=== PATIENT | female | born 1960 | race Caucasian/White ===

== ENCOUNTER 2018-12-27 16:48 | Inpatient (IN) ==
[2018-12-27] MEDS ORDERED: SODIUM CHLORIDE 0.9% 1,000 ML IV STA ×2 (17:18→18:47)
[2018-12-27] MEDS ORDERED: metroNIDAZOLE INJ 500 MG in PREMIX 1 EACH IV STA (17:18)
[2018-12-27] MEDS ORDERED: ONDANSETRON 4 MG/2 ML VIAL IV STA (17:18)
[2018-12-27] MEDS ORDERED: LOPERAMIDE 2 MG CAPSULE PO STA (17:18)
[2018-12-27] MEDS ORDERED: DICYCLOMINE 20 MG/2 ML AMP IM ONE (17:18)
[2018-12-27] MEDS ORDERED: METOCLOPRAMIDE 10 MG/2 ML VIAL IV STA (17:18)
[2018-12-27 17:47] LABS: Basophils % 0.4 % (0.0-0.8); Eosinophils # 0.1 10*3/uL (0.0-0.87); Eosinophils % 0.6 % (0.00-10.9); Hemoglobin 14.6 GM/DL (12.0-16.0); Immature Granulocytes % 0.3 %; Immature Granulocytes Absolute 0.03 #; Lymphocytes # 1.8 10*3/uL (1.4-4.0); Lymphocytes % 17.1 % (21.3-54.2); Mean Corpuscular HGB Conc 35.6 GM/DL (32-36); Mean Corpuscular Volume 92.3 FL (87-102); Mean Platelet Volume 10.1 FL (9.6-12.0); Monocytes % 12.2 % (1.7-12.7); Neutrophils % 69.4 % (38.7-73.9); Platelet Count 211 T/CUMM (130-400); Red Blood Count 4.44 MC/CUMM (3.8-5.5); Red Cell Distribution Width 13.2 % (9.3-17.3); White Blood Count 10.3 T/CUMM (4-12)
[2018-12-27 18:13] LABS: Alanine Aminotransferase 21 U/L (13-56); Albumin 3.9 G/DL (3.4-5.0); Alkaline Phosphatase 89 U/L (45-117); Amylase 60 U/L (25-115); Aspartate Amino Transferase 30 U/L (0-37); Bilirubin,Total < 0.39 MG/DL (0.2-1.0); Blood Urea Nitrogen 30 MG/DL (7-18); CKMB % 4.6 %; Calcium 8.7 MG/DL (8.5-10.1); Estimated Glom Filtration Rate 26 ML/MIN; Glucose 96 MG/DL (74-106); Osmolality,Calculated 265.8 MOS/KG (273-304); Total Protein 7.2 G/DL (6.4-8.3); Troponin I < 0.015 NG/ML (0.00-0.045)
[2018-12-27 18:23] LABS: Apearance,Urine CLOUDY (Clear); Bilirubin,Urine Negative (Negative); Blood, Urine Negative (Negative); Glucose,Urine (UA) Negative (Negative); Hyaline Casts,Urine 46 /LPF (0-3); Ketones,Urine 5 mg/dL (Negative); Mucus,Urine Occasional /LPF (Occasional); Nitrite,Urine Negative (Negative); Protein,Urine 30 MG/DL; RBC,Urine 3 /HPF (0-4); Squamous Epithelial Cell,Urine Occasional /HPF (0-10); Urine Color Amber (Yellow); Urine Specific Gravity 1.021 (1.001-1.035); WBC,Urine 3 /HPF (0-6)
[2018-12-27] MEDS ORDERED: traZODone 50 MG TABLET PO PRN (20:18)
[2018-12-27] MEDS ORDERED: ONDANSETRON 4 MG/2 ML VIAL IV PRN (20:18)
[2018-12-27] MEDS ORDERED: MAGNESIUM SULF RIDER 4 GM in PREMIX 1 EACH IV PRN (20:18)
[2018-12-27] MEDS ORDERED: NICOTINE 21 MG/24 HR PATCH TRANSDERM PRN (20:18)
[2018-12-27] MEDS ORDERED: ACETAMINOPHEN 325 MG TABLET PO PRN (20:18)
[2018-12-27] MEDS ORDERED: PROMETHAZINE 25 MG/1 ML VIAL IM PRN (20:18)
[2018-12-27] MEDS ORDERED: diphenhydrAMINE CAP 25 MG CAPSULE PO PRN (20:18)
[2018-12-27] MEDS ORDERED: LEVOFLOXACIN INJ 500 MG in PREMIX 1 EACH IV SCH (21:00)
[2018-12-27] MEDS: PREGABALIN 75 MG CAPSULE PO SCH (21:51)
[2018-12-27] MEDS: POTASSIUM CHLORIDE 20 MEQ TABLET PO PRN ×2 (22:03→23:55)
[2018-12-27] MEDS: SODIUM CHLORIDE 0.9% 1,000 ML IV SCH (22:05)
[2018-12-27] MEDS: metroNIDAZOLE INJ 500 MG in PREMIX 1 EACH IV SCH (22:36)
[2018-12-27] MEDS ORDERED: ALBUTEROL 2.5 MG/3 ML NEB RESP TX PRN (23:00)
[2018-12-28] MEDS: POTASSIUM CHLORIDE 20 MEQ TABLET PO PRN ×5 (02:30→21:22)
[2018-12-28] MEDS: MAGNESIUM SULF RIDER 2 GM in PREMIX 1 EACH IV PRN ×2 (03:12→04:47)
[2018-12-28] MEDS: SODIUM CHLORIDE 0.9% 1,000 ML IV SCH (05:05)
[2018-12-28 05:09] LABS: Albumin 2.9 G/DL (3.4-5.0); Bilirubin,Total 0.4 MG/DL (0.2-1.0); Calcium 8.3 MG/DL (8.5-10.1); Total Protein 5.9 G/DL (6.4-8.3)
[2018-12-28] MEDS: metroNIDAZOLE INJ 500 MG in PREMIX 1 EACH IV SCH ×3 (06:33→23:01)
[2018-12-28] MEDS: MONTELUKAST 10 MG TABLET PO SCH (08:39)
[2018-12-28] MEDS: CHOLECALCIFEROL 5,000 UNIT TABLET PO SCH (08:39)
[2018-12-28] MEDS: amLODIPine 5 MG TABLET PO SCH (08:39)
[2018-12-28] MEDS: PREGABALIN 75 MG CAPSULE PO SCH ×2 (08:40→21:22)
[2018-12-28] MEDS: PANTOPRAZOLE 40 MG TABLET PO SCH (08:40)
[2018-12-28] MEDS: ASPIRIN EC 81 MG TABLET PO SCH (08:40)
[2018-12-28] MEDS: METOPROLOL SUCCINATE XL 50 MG TABLET PO SCH (08:40)
[2018-12-28] MEDS ORDERED: ZINC GLUCONATE ZINC PICOLINATE 30 MG PO SCH (09:00)
[2018-12-28] MEDS: POTASSIUM CHLORIDE INJ 20 MEQ in LACTATED RINGERS 1,000 ML IV SCH (13:12)
[2018-12-28] MEDS: LEVOFLOXACIN INJ 500 MG in PREMIX 1 EACH IV SCH (21:21)
[2018-12-29] MEDS: metroNIDAZOLE INJ 500 MG in PREMIX 1 EACH IV SCH ×3 (05:03→23:37)
[2018-12-29] MEDS: POTASSIUM CHLORIDE INJ 20 MEQ in LACTATED RINGERS 1,000 ML IV SCH (05:04)
[2018-12-29] MEDS: MAGNESIUM SULF RIDER 2 GM in PREMIX 1 EACH IV PRN (08:48)
[2018-12-29] MEDS: PREGABALIN 75 MG CAPSULE PO SCH ×2 (08:49→21:12)
[2018-12-29] MEDS: PANTOPRAZOLE 40 MG TABLET PO SCH (08:49)
[2018-12-29] MEDS: CHOLECALCIFEROL 5,000 UNIT TABLET PO SCH (08:49)
[2018-12-29] MEDS: MONTELUKAST 10 MG TABLET PO SCH (08:49)
[2018-12-29] MEDS: ASPIRIN EC 81 MG TABLET PO SCH (08:49)
[2018-12-29] MEDS: amLODIPine 5 MG TABLET PO SCH (08:49)
[2018-12-29] MEDS: METOPROLOL SUCCINATE XL 50 MG TABLET PO SCH (08:49)
[2018-12-29] MEDS: LEVOFLOXACIN INJ 500 MG in PREMIX 1 EACH IV SCH (21:13)
[2018-12-30] MEDS: POTASSIUM CHLORIDE INJ 20 MEQ in LACTATED RINGERS 1,000 ML IV SCH (03:00)
[2018-12-30 05:07] LABS: INR 1.1; PT Patient Result 11.9 SECS (9.6-12.2)
[2018-12-30] MEDS: metroNIDAZOLE INJ 500 MG in PREMIX 1 EACH IV SCH (06:10)
[2018-12-30] MEDS: MONTELUKAST 10 MG TABLET PO SCH (09:10)
[2018-12-30] MEDS: CHOLECALCIFEROL 5,000 UNIT TABLET PO SCH (09:10)
[2018-12-30] MEDS: ASPIRIN EC 81 MG TABLET PO SCH (09:10)
[2018-12-30] MEDS: PREGABALIN 75 MG CAPSULE PO SCH (09:10)
[2018-12-30] MEDS: amLODIPine 5 MG TABLET PO SCH (09:10)
[2018-12-30] MEDS: PANTOPRAZOLE 40 MG TABLET PO SCH (09:10)
[2018-12-30] MEDS: METOPROLOL SUCCINATE XL 50 MG TABLET PO SCH (09:11)
[2018-12-30 12:43] VITALS: BP 144/74
== END 2018-12-30 13:45 | disposition home or self-care (01) | DRG 392 ==
LOC: N.EDINP 16:48 → N.ED 16:48 → N.4E 20:42 → SUATTDRO 12-29 10:17
PROVIDERS: ADMIT Internal Medicine Geriatric Medicine; ATTEND Internal Medicine Nephrology